=== PATIENT | male | born 1975 | race Caucasian/White ===

== ENCOUNTER 2018-09-09 09:33 | Inpatient (IN) | payer OTHER ==
[2018-09-09 09:53] VITALS: BMI 24.0
--- NOTE | 2018-09-09 10:47 | HP ---
COWS - Scale Resting Pulse: 0= [place] 80 or Below Sweatin= Chills/Flushing Restless Observation: 1= Difficult to Sit Still Pupil Size: 1= Pupils >than Normal Bone or Joint Aches: 2= Severe Diffuse Aches Runny Nose/ Eye Tearin= Runny Nose/Eyes GI Upset > 30mins: 2= Nausea/Diarrhea Tremor Observation: 1= Tremor [place], Not Seen Yawning Observation: 1= 1-2x During Session Anxiety or Irritability: 2=Irritable/Anxious Goose Flesh Skin: 0=Smooth Skin COWS Score: 13 CIWA Score - Admission Criteria OASAS Guidelines: Admission for Medically Managed Detox: Requires at least one of the followin. CIWA greater than 12 2. Seizures within the past 24 hours 3. Delirium tremens within the past 24 hours 4. Hallucinations within the past 24 hours 5. Acute intervention needed for co occurring medical disorder 6. Acute intervention needed for co occurring psychiatric disorder 7. Severe withdrawal that cannot be handled at a lower level of care (continued vomiting, continued diarrhea, abnormal vital signs) requiring intravenous medication and/or fluids 8. Admission ROS S - HPI Chief Complaint: i need help to stop using heroin,cocaine,marijuana and street methadone Allergies/Adverse Reactions: Allergies Allergy/AdvReac Type Severity Reaction Status Date / Time No Known Allergies Allergy Verified 09/09/18 10:39 History of Present Illness: this 43 years old male with heroin,cocaine,marijuana and street methadone, withdrawal symptom,seeking detox,last treatment 2017 did not recall the facility weight loss history of kidneys stones no significant period of sobriety Exam Limitations: No Limitations - Ebola screening Have you traveled outside of the country in the last 21 days: No Have you had contact with anyone from an Ebola affected area: No Have you been sick,other than usual withdrawal symptoms: No Do you have a fever: No - Review of Systems Constitutional: Chills, Loss of Appetite, Malaise, Night Sweats, Changes in sleep, Weakness, Unintentional Wgt. Loss EENT: reports: Tearing, Nose Congestion Respiratory: reports: No Symptoms reported Cardiac: reports: No Symptoms Reported GI: reports: Diarrhea, Nausea, Vomiting, Abdominal cramping : reports: No Symptoms Reported Musculoskeletal: reports: Back Pain, Joint Pain, Muscle Pain, Joint Stiffness Integumentary: reports: Dryness Neuro: reports: Headache, Tremors Endocrine: reports: No Symptoms Reported Hematology: reports: No Symptoms Reported Psychiatric: reports: No Sypmtoms Reported, Judgement Intact, Mood/Affect Appropiate, Orientated x3 Patient History - Patient Medical History Hx Anemia: No Hx Asthma: No Hx Chronic Obstructive Pulmonary Disease (COPD): No Hx Cancer: No Hx Cardiac Disorders: No Hx Congestive Heart Failure: No Hx Pacemaker: No HX Cerebrovascular Accident: No Hx Seizures: No Hx Dementia: No Hx Diabetes: No Hx Gastrointestinal Disorders: No Hx Liver Disease: No Hx Genitourinary Disorders: No Hx Sexually Transmitted Disorders: No Hx Renal Disease (ESRD): No Hx Thyroid Disease: Yes (hyperthyroidism) Hx Human Immunodeficiency Virus (HIV): No (last 2016) Hx Hepatitis C: No Hx Depression: No Hx Suicide Attempt: No Hx Bipolar Disorder: No Hx Schizophrenia: No Other Medical History: no suicidal,no homicidal - Patient Surgical History Past Surgical History: No - PPD History Previous Implant?: Yes Documented Results: Negative w/o proof Implanted On Prior [facility] Admission?: No PPD to be Administered?: Yes - Smoking Cessation Smoking history: Never smoked - Substance & Tx. History Hx Alcohol Use: No Hx Substance Use: Yes Substance Use Type: Cocaine, Heroin, Marijuana Hx Substance Use Treatment: Yes (2017 did not recall facility) - Substances Abused Heroin Route: Inhalation Frequency: Daily Amount used: 12 bags Age of first use: 27 Date of Last Use: 09/09/18 Cocaine Route: Inhalation Frequency: Daily Amount used: 2 bags Age of first use: 19 Date of Last Use: 09/07/18 Marijuana/Hashish Route: Smoking Frequency: 1-2 times per week Amount used: 1 joint Age of first use: 15 Date of Last Use: 09/08/18 street methadone Route: Oral Frequency: 1-2 times per week Amount used: 30mg Age of first use: 31 Date of Last Use: 09/08/18 Family Disease History - Family Disease History Family History: Denies Admission Physical Exam S - Vital Signs Vital Signs: Vital Signs - 24 hr 09/09/18 09:50 Temperature 97.3 F L Pulse Rate 77 Respiratory 18 Rate Blood Pressure 141/79 - Physical General Appearance: Yes: Moderate Distress, Tremorous, Irritable, Sweating, Anxious HEENTM: Yes: Normal ENT Inspection, CHERYL, Pharynx Normal Respiratory: Yes: Lungs Clear, Normal Breath Sounds, No Respiratory Distress Neck: Yes: Within Normal Limits, Supple, Trachea in good position Breast: Yes: Within Normal Limits Cardiology: Yes: Within Normal Limits, Regular Rhythm, Regular Rate, S1, S2 Abdominal: Yes: Within Normal Limits, Normal Bowel Sounds, Non Tender, Flat, Soft Genitourinary: Yes: Within Normal Limits Back: Yes: Muscle Spasm Musculoskeletal: Yes: full range of Motion, Back pain, Muscle Pain Extremities: Yes: Within Normal Limits, Normal Range of Motion, Tremors Neurological: Yes: Within Normal Limits, Alert, Motor Strength 5/5 Integumentary: Yes: Dry Lymphatic: Yes: Within Normal Limits - Diagnostic (1) Opioid dependence with withdrawal Current Visit: Yes Status: Acute (2) Cocaine dependence Current Visit: Yes Status: Acute (3) Cannabis dependence Current Visit: Yes Status: Acute (4) Weight loss Current Visit: Yes Status: Acute (5) Hyperthyroidism Current Visit: Yes Status: Acute Cleared for Admission [facility] - Detox or Rehab [facility] Level of Care: Medically Managed Detox Regimen/Protocol: Methadone [facility] Breath Alcohol Content Breath Alcohol Content: 0 Urine Drug Screen - Results Drug Screen Negative: No Urine Drug Screen Results: THC-Marijuana, SCARLETT-Cocaine, OPI-Opiates, MTD- Methadone, FEN-Fentanyl
[2018-09-09] MEDS ORDERED: LOPERAMIDE HCL 2 MG CAPSULE PO PRN (11:00)
[2018-09-09] MEDS ORDERED: MAGNESIUM CITRATE 300 ML BOTTLE PO PRN (11:00)
[2018-09-09] MEDS ORDERED: MAGNESIUM HYDROX 2400MG/30ML ORAL SUSPENSION 30 ML CUP PO PRN (11:00)
[2018-09-09] MEDS ORDERED: P-EPHED 60MG/TRIPROLIDI 2.5MG TABLET PO PRN (11:00)
[2018-09-09] MEDS ORDERED: MENTHOL/PHENOL 1 EACH UD MM PRN (11:00)
[2018-09-09] MEDS ORDERED: MAG HYDROX/AL HYDROX/SIMETH 30 ML UNIT-DOSE CUP PO PRN (11:00)
[2018-09-09] MEDS ORDERED: guaiFENesin/D-METHORPHAN HB 10 ML UNIT-DOSE CUPS PO PRN (11:00)
[2018-09-09] MEDS ORDERED: METHADONE HCL 10 MG TABLET (FOR DETOX USE ONLY) PO ONE ×2 (11:35→23:00)
[2018-09-09] MEDS ORDERED: METHIMAZOLE 10 MG TABLET (FP) PO SCH ×2 (11:45→17:45)
[2018-09-09] MEDS: CYCLOBENZAPRINE HCL 10 MG TABLET (FP) PO PRN (12:32)
[2018-09-09] MEDS: diazePAM 5 MG TABLET PO PRN (12:32)
--- NOTE | 2018-09-09 15:44 | EKG ---
Test Reason : Blood Pressure : / mmHG Vent. Rate : 060 BPM Atrial Rate : 060 BPM P-R Int : 128 ms QRS Dur : 086 ms QT Int : 414 ms P-R-T Axes : 028 041 049 degrees QTc Int : 414 ms NORMAL SINUS RHYTHM NORMAL ECG NO PREVIOUS ECGS AVAILABLE Confirmed by MARGOT GUIDO, BEAN ([id number]) on 09/09/2018 3:44:10 PM Referred By: Confirmed By:BEAN FROST MD
[2018-09-09] MEDS: THIAMINE HCL 100 MG TABLET (FP) PO SCH (22:32)
[2018-09-09] MEDS: METHIMAZOLE 10 MG TABLET (FP) PO SCH (22:32)
[2018-09-09] MEDS: cloNIDine HCL 0.1 MG TABLET PO SCH (22:33)
[2018-09-10 00:02] LABS: URINE APPEARANCE CLEAR; URINE BILIRUBIN NEGATIVE (<2.0 mg/dL); URINE COLOR YELLOW; URINE GLUCOSE (UA) NEGATIVE (NEGATIVE); URINE KETONE NEGATIVE (NEGATIVE); URINE LEUK ESTERASE NEGATIVE (NEGATIVE); URINE NITRITE NEGATIVE (NEGATIVE); URINE PROTEIN NEGATIVE (NEGATIVE)
[2018-09-10 00:06] LABS: EPI CELLS RARE /HPF (FEW); URINE MUCUS RARE
[2018-09-10] MEDS: METHIMAZOLE 10 MG TABLET (FP) PO SCH ×3 (05:14→22:55)
[2018-09-10] MEDS: ACETAMINOPHEN 325 MG TABLET (FP) PO PRN ×2 (05:15→22:56)
[2018-09-10] MEDS ORDERED: METHADONE HCL 10 MG TABLET (FOR DETOX USE ONLY) PO ONE (10:00)
[2018-09-10] MEDS: CYCLOBENZAPRINE HCL 10 MG TABLET (FP) PO PRN (10:09)
[2018-09-10] MEDS: cloNIDine HCL 0.1 MG TABLET PO SCH ×2 (10:09→22:58)
[2018-09-10] MEDS: diazePAM 5 MG TABLET PO PRN (10:09)
[2018-09-10] MEDS: PRENATAL VITAMINS W/ FOLIC ACID TABLET (FP) PO SCH (10:09)
[2018-09-10] MEDS: IBUPROFEN 400 MG TABLET (FP) PO PRN (10:12)
[2018-09-10 10:19] LABS: HEMATOCRIT 40.5 % (35.4-49); HEMOGLOBIN 13.1 GM/dL (11.7-16.9); MCH 29.2 pg (25.7-33.7); MCHC 32.3 g/dl (32.0-35.9); MEAN CELL VOLUME 90.3 fl (80-96); MEAN PLT VOLUME 10.1 fl (7.5-11.1); PLATELET COUNT 188 K/MM3 (134-434); RBC 4.48 M/mm3 (4.00-5.60); RDW 13.9 % (11.9-15.9); WHITE BLOOD COUNT 5.9 K/mm3 (4.0-10.0)
[2018-09-10 10:59] LABS: ALBUMIN 3.7 g/dl (3.4-5.0); ALK PHOS 112 U/L (45-117); ANION GAP 11 MMOL/L (8-16); BILIRUBIN,TOTAL 0.4 mg/dL (0.2-1); BLOOD UREA NITROGEN 15 mg/dL (7-18); CALCIUM 8.4 mg/dL (8.5-10.1); CHLORIDE 105 mmol/L (98-107); CO2 26 mmol/L (21-32); CREATININE 0.8 mg/dL (0.55-1.3); GLUCOSE,RANDOM 83 mg/dL (74-106); POTASSIUM 4.3 mmol/L (3.5-5.1); SGOT/AST 16 U/L (15-37); SGPT/ALT 24 U/L (13-61); SODIUM 141 mmol/L (136-145); TOT PROT 7.5 g/dl (6.4-8.2)
[2018-09-10] MEDS ORDERED: LIDOCAINE VISCOUS 2% ORAL/TOP 20 ML UNIT-DOSE CUP MM PRN (13:09)
--- NOTE | 2018-09-10 13:10 | PN ---
BHS COWS - Scale Resting Pulse: 0= [place] 80 or Below Sweatin= Chills/Flushing Restless Observation: 1= Difficult to Sit Still Pupil Size: 1= Pupils >than Normal Bone or Joint Aches: 1= Mild Discomfort Runny Nose/ Eye Tearin= Nasal Congestion GI Upset > 30mins: 1= Stomach Cramp Tremor Observation of Outstretched Hands: 1= Tremor [place], Not Seen Yawning Observation: 2= >3x During Session Anxiety or Irritability: 2=Irritable/Anxious Goose Flesh Skin: 0=Smooth Skin COWS Score: 11 BHS Progress Note (SOAP) Subjective: right upper tooth decay no acute bleeding no swell last dental visit "many years ago" body aches joints pain sweat tremor trouble sleep at night Objective: 09/10/18 13:13 Vital Signs Temperature 97.5 F L 09/10/18 09:21 Pulse Rate 72 09/10/18 09:21 Respiratory Rate 16 09/10/18 09:21 Blood Pressure 149/50 L 09/10/18 09:21 O2 Sat by Pulse Oximetry (%) Laboratory Last Values WBC 5.9 K/mm3 (4.0-10.0) 09/10/18 05:40 RBC 4.48 M/mm3 (4.00-5.60) 09/10/18 05:40 Hgb 13.1 GM/dL (11.7-16.9) 09/10/18 05:40 Hct 40.5 % (35.4-49) 09/10/18 05:40 MCV 90.3 fl (80-96) 09/10/18 05:40 MCH 29.2 pg (25.7-33.7) 09/10/18 05:40 MCHC 32.3 g/dl (32.0-35.9) 09/10/18 05:40 RDW 13.9 % (11.9-15.9) 09/10/18 05:40 Plt Count 188 K/MM3 (134-434) 09/10/18 05:40 MPV 10.1 fl (7.5-11.1) 09/10/18 05:40 Sodium 141 mmol/L (136-145) 09/10/18 05:40 Potassium 4.3 mmol/L (3.5-5.1) 09/10/18 05:40 Chloride 105 mmol/L (98-107) 09/10/18 05:40 Carbon Dioxide 26 mmol/L (21-32) 09/10/18 05:40 Anion Gap 11 MMOL/L (8-16) 09/10/18 05:40 BUN 15 mg/dL (7-18) 09/10/18 05:40 Creatinine 0.8 mg/dL (0.55-1.3) 09/10/18 05:40 Creat Clearance w eGFR > 60 (>60) 09/10/18 05:40 Random Glucose 83 mg/dL (74-106) 09/10/18 05:40 Calcium 8.4 mg/dL (8.5-10.1) L 09/10/18 05:40 Total Bilirubin 0.4 mg/dL (0.2-1) 09/10/18 05:40 AST 16 U/L (15-37) 09/10/18 05:40 ALT 24 U/L (13-61) 09/10/18 05:40 Alkaline Phosphatase 112 U/L (45-117) 09/10/18 05:40 Total Protein 7.5 g/dl (6.4-8.2) 09/10/18 05:40 Albumin 3.7 g/dl (3.4-5.0) 09/10/18 05:40 Urine Color Yellow 09/09/18 23:45 Urine Appearance Clear 09/09/18 23:45 Urine pH 6.0 (5.0-8.0) 09/09/18 23:45 Ur Specific [place] 1.025 (1.010-1.035) 09/09/18 23:45 Urine Protein Negative (NEGATIVE) 09/09/18 23:45 Urine Glucose (UA) Negative (NEGATIVE) 09/09/18 23:45 Urine Ketones Negative (NEGATIVE) 09/09/18 23:45 Urine Blood 1+ (NEGATIVE) H 09/09/18 23:45 Urine Nitrite Negative (NEGATIVE) 09/09/18 23:45 Urine Bilirubin Negative (<2.0 mg/dL) 09/09/18 23:45 Urine Urobilinogen 2.0 mg/dL (0.2-1.0) 09/09/18 23:45 Ur Leukocyte Esterase Negative (NEGATIVE) 09/09/18 23:45 Urine WBC (Auto) 4 /hpf (3-5) 09/09/18 23:45 Urine RBC (Auto) 92 /hpf (0-3) 09/09/18 23:45 Ur Epithelial Cells Rare /HPF (FEW) 09/09/18 23:45 Urine Mucus Rare 09/09/18 23:45 RPR Titer Nonreactive (NONREACTIVE) 09/10/18 05:40 HIV 1&2 Antibody Screen Negative 09/09/18 11:35 HIV P24 Antigen Negative 09/09/18 11:35 lab noted Assessment: 09/10/18 13:13 withdrawal sx tooth decay Plan: continue detox lidocaine chlorhexidine
[2018-09-10] MEDS: CHLORHEXIDINE GLUCONATE 0.12% 15ML CUP MM SCH ×2 (14:29→22:54)
[2018-09-10] MEDS: THIAMINE HCL 100 MG TABLET (FP) PO SCH (22:53)
[2018-09-11] MEDS: METHIMAZOLE 10 MG TABLET (FP) PO SCH ×3 (05:21→23:45)
[2018-09-11] MEDS ORDERED: METHADONE HCL 5 MG TABLET (FOR DETOX USE ONLY) PO ONE (10:00)
[2018-09-11] MEDS: CHLORHEXIDINE GLUCONATE 0.12% 15ML CUP MM SCH ×2 (10:09→22:39)
[2018-09-11] MEDS: cloNIDine HCL 0.1 MG TABLET PO SCH ×2 (10:09→22:41)
[2018-09-11] MEDS: PRENATAL VITAMINS W/ FOLIC ACID TABLET (FP) PO SCH (10:09)
[2018-09-11] MEDS: IBUPROFEN 400 MG TABLET (FP) PO PRN (10:12)
--- NOTE | 2018-09-11 10:24 | PN ---
BHS COWS - Scale Resting Pulse: 0= [place] 80 or Below Sweatin=Flushed/Facial Moisture Restless Observation: 0= Sits Still Pupil Size: 0= Normal to Room Light Bone or Joint Aches: 2= Severe Diffuse Aches Runny Nose/ Eye Tearin= Nasal Congestion GI Upset > 30mins: 0= None Tremor Observation of Outstretched Hands: 2= Slight Tremor Visible Yawning Observation: 2= >3x During Session Anxiety or Irritability: 2=Irritable/Anxious Goose Flesh Skin: 0=Smooth Skin COWS Score: 11 S Progress Note (SOAP) Subjective: sweats irritable agitation interrupted sleep Objective: 09/11/18 10:21 Vital Signs Temperature 97.9 F 09/11/18 09:10 Pulse Rate 80 09/11/18 09:10 Respiratory Rate 16 09/11/18 09:10 Blood Pressure 106/56 L 09/11/18 09:10 O2 Sat by Pulse Oximetry (%) Laboratory Tests 09/09/18 09/09/18 09/10/18 11:35 23:45 05:40 WBC 5.9 RBC 4.48 Hgb 13.1 Hct 40.5 MCV 90.3 MCH 29.2 MCHC 32.3 RDW 13.9 Plt Count 188 MPV 10.1 Sodium Potassium Chloride Carbon Dioxide Anion Gap BUN Creatinine Creat Clearance w eGFR Random Glucose Calcium Total Bilirubin AST ALT Alkaline Phosphatase Total Protein Albumin Urine Color Yellow Urine Appearance Clear Urine pH 6.0 Ur Specific [place] 1.025 Urine Protein Negative Urine Glucose (UA) Negative Urine Ketones Negative Urine Blood 1+ H Urine Nitrite Negative Urine Bilirubin Negative Urine Urobilinogen 2.0 Ur Leukocyte Esterase Negative Urine WBC (Auto) 4 Urine RBC (Auto) 92 Ur Epithelial Cells Rare Urine Mucus Rare RPR Titer HIV 1&2 Antibody Screen Negative HIV P24 Antigen Negative 09/10/18 09/10/18 05:40 05:40 WBC RBC Hgb Hct MCV MCH MCHC RDW Plt Count MPV Sodium 141 Potassium 4.3 Chloride 105 Carbon Dioxide 26 Anion Gap 11 BUN 15 Creatinine 0.8 Creat Clearance w eGFR > 60 Random Glucose 83 Calcium 8.4 L Total Bilirubin 0.4 AST 16 ALT 24 Alkaline Phosphatase 112 Total Protein 7.5 Albumin 3.7 Urine Color Urine Appearance Urine pH Ur Specific [place] Urine Protein Urine Glucose (UA) Urine Ketones Urine Blood Urine Nitrite Urine Bilirubin Urine Urobilinogen Ur Leukocyte Esterase Urine WBC (Auto) Urine RBC (Auto) Ur Epithelial Cells Urine Mucus RPR Titer Nonreactive HIV 1&2 Antibody Screen HIV P24 Antigen aaox3 ambulating no acute distress Assessment: 09/11/18 10:22 withdrawal sx Plan: continue detox increase fluids
[2018-09-11] MEDS: MELATONIN 5 MG TABLETS PO PRN (22:39)
[2018-09-11] MEDS: THIAMINE HCL 100 MG TABLET (FP) PO SCH (22:39)
[2018-09-12] MEDS: METHIMAZOLE 5 MG TABLET (FP) PO SCH ×3 (06:37→22:21)
[2018-09-12] MEDS ORDERED: METHADONE HCL 5 MG TABLET (FOR DETOX USE ONLY) PO ONE (10:00)
[2018-09-12] MEDS: cloNIDine HCL 0.1 MG TABLET PO SCH ×2 (10:06→22:21)
[2018-09-12] MEDS: diazePAM 5 MG TABLET PO PRN (10:06)
[2018-09-12] MEDS: PRENATAL VITAMINS W/ FOLIC ACID TABLET (FP) PO SCH (10:06)
[2018-09-12] MEDS: CHLORHEXIDINE GLUCONATE 0.12% 15ML CUP MM SCH ×2 (10:07→22:21)
--- NOTE | 2018-09-12 10:08 | PN ---
BHS Progress Note (SOAP) Subjective: chills sweats toothache Objective: 09/12/18 10:08 Vital Signs Temperature 98.6 F 09/12/18 09:28 Pulse Rate 83 09/12/18 09:28 Respiratory Rate 16 09/12/18 09:28 Blood Pressure 133/77 09/12/18 09:28 O2 Sat by Pulse Oximetry (%) aaox3 ambulating no acute distress Assessment: 09/12/18 10:08 mild withdrawal Plan: continue detox increase fluids continue with peridex
--- NOTE | 2018-09-12 10:56 | PN ---
S Progress Note Note: pt states he needs to be home for his daughters birthday. Pt
[2018-09-12] MEDS: CYCLOBENZAPRINE HCL 10 MG TABLET (FP) PO PRN ×2 (13:48→22:21)
[2018-09-12] MEDS: THIAMINE HCL 100 MG TABLET (FP) PO SCH (22:21)
[2018-09-12] MEDS: MELATONIN 5 MG TABLETS PO PRN (22:21)
[2018-09-13] MEDS: METHIMAZOLE 5 MG TABLET (FP) PO SCH (06:01)
[2018-09-13 09:25] VITALS: BP 103/58; PULSE 74; TEMP 98.1
--- NOTE | 2018-09-13 09:40 | DS ---
[facility] Detox Discharge Summary Admission Date: 09/09/18 Discharge Date: 09/13/18 - History Present History: Opioid Dependence Additional Comments: 43 years old male admitted on 09/09/18 for opiate withdrawal sx feeling better today no gi distress no tremor less sweat no body aches preferred aftercare with Dr. Posey today last visit 08/31/18 received 30 days supply medications - Physical Exam Results Vital Signs: Vital Signs Temperature 98.1 F 09/13/18 09:25 Pulse Rate 74 09/13/18 09:25 Respiratory Rate 16 09/13/18 09:25 Blood Pressure 103/58 L 09/13/18 09:25 O2 Sat by Pulse Oximetry (%) Pertinent Admission Physical Exam Findings: opiate withdrawal sx Vital Signs Temperature 98.1 F 09/13/18 09:25 Pulse Rate 74 09/13/18 09:25 Respiratory Rate 16 09/13/18 09:25 Blood Pressure 103/58 L 09/13/18 09:25 O2 Sat by Pulse Oximetry (%) Laboratory Last Values WBC 5.9 K/mm3 (4.0-10.0) 09/10/18 05:40 RBC 4.48 M/mm3 (4.00-5.60) 09/10/18 05:40 Hgb 13.1 GM/dL (11.7-16.9) 09/10/18 05:40 Hct 40.5 % (35.4-49) 09/10/18 05:40 MCV 90.3 fl (80-96) 09/10/18 05:40 MCH 29.2 pg (25.7-33.7) 09/10/18 05:40 MCHC 32.3 g/dl (32.0-35.9) 09/10/18 05:40 RDW 13.9 % (11.9-15.9) 09/10/18 05:40 Plt Count 188 K/MM3 (134-434) 09/10/18 05:40 MPV 10.1 fl (7.5-11.1) 09/10/18 05:40 Sodium 141 mmol/L (136-145) 09/10/18 05:40 Potassium 4.3 mmol/L (3.5-5.1) 09/10/18 05:40 Chloride 105 mmol/L (98-107) 09/10/18 05:40 Carbon Dioxide 26 mmol/L (21-32) 09/10/18 05:40 Anion Gap 11 MMOL/L (8-16) 09/10/18 05:40 BUN 15 mg/dL (7-18) 09/10/18 05:40 Creatinine 0.8 mg/dL (0.55-1.3) 09/10/18 05:40 Creat Clearance w eGFR > 60 (>60) 09/10/18 05:40 Random Glucose 83 mg/dL (74-106) 09/10/18 05:40 Calcium 8.4 mg/dL (8.5-10.1) L 09/10/18 05:40 Total Bilirubin 0.4 mg/dL (0.2-1) 09/10/18 05:40 AST 16 U/L (15-37) 09/10/18 05:40 ALT 24 U/L (13-61) 09/10/18 05:40 Alkaline Phosphatase 112 U/L (45-117) 09/10/18 05:40 Total Protein 7.5 g/dl (6.4-8.2) 09/10/18 05:40 Albumin 3.7 g/dl (3.4-5.0) 09/10/18 05:40 Urine Color Yellow 09/09/18 23:45 Urine Appearance Clear 09/09/18 23:45 Urine pH 6.0 (5.0-8.0) 09/09/18 23:45 Ur Specific [place] 1.025 (1.010-1.035) 09/09/18 23:45 Urine Protein Negative (NEGATIVE) 09/09/18 23:45 Urine Glucose (UA) Negative (NEGATIVE) 09/09/18 23:45 Urine Ketones Negative (NEGATIVE) 09/09/18 23:45 Urine Blood 1+ (NEGATIVE) H 09/09/18 23:45 Urine Nitrite Negative (NEGATIVE) 09/09/18 23:45 Urine Bilirubin Negative (<2.0 mg/dL) 09/09/18 23:45 Urine Urobilinogen 2.0 mg/dL (0.2-1.0) 09/09/18 23:45 Ur Leukocyte Esterase Negative (NEGATIVE) 09/09/18 23:45 Urine WBC (Auto) 4 /hpf (3-5) 09/09/18 23:45 Urine RBC (Auto) 92 /hpf (0-3) 09/09/18 23:45 Ur Epithelial Cells Rare /HPF (FEW) 09/09/18 23:45 Urine Mucus Rare 09/09/18 23:45 RPR Titer Nonreactive (NONREACTIVE) 09/10/18 05:40 HIV 1&2 Antibody Screen Negative 09/09/18 11:35 HIV P24 Antigen Negative 09/09/18 11:35 lab noted - Treatment Hospital Course: Detox Protocol Followed, Detoxed Safely, Responded well, Discharged Condition Good, Rehab Referral Accepted Patient has Accepted a Rehab Referral to: Dr. Posey for medical mental and addiction issues - Medication Discharge Medications: Ambulatory Orders Methimazole [Tapazole -] 10 mg PO Q8H #90 tablet 09/13/18 - Diagnosis (1) Hyperthyroidism Status: Chronic (2) Weight loss Status: Acute (3) Opioid dependence with withdrawal Status: Acute - AMA Did Patient Leave Against Medical Advice: No
[2018-09-13] MEDS ORDERED: METHADONE HCL 10 MG TABLET (FOR DETOX USE ONLY) PO ONE (10:00)
[2018-09-13] MEDS: PRENATAL VITAMINS W/ FOLIC ACID TABLET (FP) PO SCH (10:02)
[2018-09-13] MEDS: cloNIDine HCL 0.1 MG TABLET PO SCH (10:02)
[2018-09-13] MEDS: CHLORHEXIDINE GLUCONATE 0.12% 15ML CUP MM SCH (10:03)
[2018-09-14] MEDS ORDERED: METHADONE HCL 5 MG TABLET (FOR DETOX USE ONLY) PO ONE (06:00)
== END 2018-09-13 10:08 | disposition home or self-care (01) | DRG 773 ==
LOC: YASAS 09:33 → Y6N 11:27
PROVIDERS: ADMIT Neuromusculoskeletal Medicine & OMM; ATTEND Neuromusculoskeletal Medicine & OMM
PROC: HZ2ZZZZ Detoxification Services for Substance Abuse Treatment (ICD-10-PCS; principal; 2018-09-09)
DX: F11.23 Opioid dependence with withdrawal (principal); F14.20 Cocaine dependence, uncomplicated; F12.20 Cannabis dependence, uncomplicated; E05.90 Thyrotoxicosis, unspecified without thyrotoxic crisis or storm; R63.4 Abnormal weight loss; Z68.24 Body mass index [BMI] 24.0-24.9, adult
CPT/HCPCS: 36415; 80053; 81003; 81015; 85027; 86593; 87389; 93005; 93010; J0735

== ENCOUNTER 2018-10-13 15:34 | Inpatient (IN) | payer OTHER ==
[2018-10-13 15:53] VITALS: BMI 23.5
--- NOTE | 2018-10-13 16:29 | HP ---
COWS - Scale Resting Pulse: 1= [place] 81-100 Sweatin=Flushed/Facial Moisture Restless Observation: 0= Sits Still Pupil Size: 1= Pupils >than Normal Bone or Joint Aches: 4=Acute Joint/Muscle Pain Runny Nose/ Eye Tearin= Runny Nose/Eyes GI Upset > 30mins: 1= Stomach Cramp Tremor Observation: 0= None Yawning Observation: 0= None Anxiety or Irritability: 2=Irritable/Anxious Goose Flesh Skin: 0=Smooth Skin COWS Score: 13 CIWA Score - Admission Criteria OAS Guidelines: Admission for Medically Managed Detox: Requires at least one of the followin. CIWA greater than 12 2. Seizures within the past 24 hours 3. Delirium tremens within the past 24 hours 4. Hallucinations within the past 24 hours 5. Acute intervention needed for co occurring medical disorder 6. Acute intervention needed for co occurring psychiatric disorder 7. Severe withdrawal that cannot be handled at a lower level of care (continued vomiting, continued diarrhea, abnormal vital signs) requiring intravenous medication and/or fluids 8. Admission ROS [facility] Chief Complaint: Heroin withdrawal symptoms Allergies/Adverse Reactions: Allergies Allergy/AdvReac Type Severity Reaction Status Date / Time No Known Allergies Allergy Verified 10/13/18 15:54 History of Present Illness: 43 years old male with 7 years of heroin dependence is seeking admission to detox. Patient was in detox 09/09/2018 - 09/13/2018. He reports in significnt period of sobriety. He has medical history of Hyperthyroidism. He denies suicide attempt and suicidal ideation a this time. - Ebola screening Have you traveled outside of the country in the last 21 days: No (N) Have you had contact with anyone from an Ebola affected area: No Have you been sick,other than usual withdrawal symptoms: No Do you have a fever: No Patient History - Patient Medical History Hx Anemia: No Hx Asthma: No Hx Chronic Obstructive Pulmonary Disease (COPD): No Hx Cancer: No Hx Cardiac Disorders: No Hx Congestive Heart Failure: No Hx Hypertension: No Hx Pacemaker: No HX Cerebrovascular Accident: No Hx Seizures: No Hx Dementia: No Hx Diabetes: No Hx Gastrointestinal Disorders: No Hx Liver Disease: No Hx Genitourinary Disorders: No Hx Sexually Transmitted Disorders: No Hx Renal Disease (ESRD): No Hx Thyroid Disease: Yes (Hyperthyroidism- Methimazole) Hx Human Immunodeficiency Virus (HIV): No (Negative 2017) Hx Hepatitis C: No Hx Depression: No Hx Suicide Attempt: No Hx Bipolar Disorder: No Hx Schizophrenia: No - Patient Surgical History Past Surgical History: Yes Hx Genitourinary Surgery: Yes (Bilateral kidney stone sx in 2013 in [place]) Hx Orthopedic Surgery: Yes (Left knee ORIF 05/2016, right thumb surgery 2015) Other Surgical History: Kidney stone removal in 2013 Anesthesia Reaction: No - PPD History Previous Implant?: Yes Documented Results: Negative w/proof Implanted On Prior [facility] Admission?: Yes Date: 09/11/18 Results: 0 mm PPD to be Administered?: No - Reproductive History Patient is a Female of Child Bearing Age (11 -55 yrs old): No (Male) - Smoking Cessation Smoking history: Never smoked Have you smoked in the past 12 months: No Aproximately how many cigarettes per day: 0 Cigars Per Day: 0 Hx Chewing Tobacco Use: No Initiated information on smoking cessation: No - Substance & Tx. History Hx Alcohol Use: No Hx Substance Use: Yes Substance Use Type: Heroin Hx Substance Use Treatment: Yes ([facility] 09/09/2018 - 09/13/2018) - Substances Abused Heroin Route: Inhalation Frequency: Daily Amount used: 12-15 bags Age of first use: 37 Date of Last Use: 10/13/18 Family Disease History - Family Disease History Family History: Denies Admission Physical Exam [facility] - Vital Signs Vital Signs: Vital Signs - 24 hr 10/13/18 15:46 Temperature 96.1 F L Pulse Rate 97 H Respiratory 18 Rate Blood Pressure 116/80 - Physical General Appearance: Yes: Moderate Distress, Tremorous, Irritable, Sweating, Anxious HEENTM: Yes: EOMI, Normal ENT Inspection, Normal Voice, CHERYL Respiratory: Yes: Lungs Clear, Normal Breath Sounds, No Respiratory Distress Neck: Yes: Supple Breast: Yes: Breast Exam Deferred Cardiology: Yes: Regular Rhythm, Regular Rate Abdominal: Yes: Normal Bowel Sounds, Soft Genitourinary: Yes: Within Normal Limits Back: Yes: Normal Inspection Musculoskeletal: Yes: Back pain Extremities: Yes: Tremors Neurological: Yes: Alert, Normal Mood/Affect Integumentary: Yes: Warm Lymphatic: Yes: Within Normal Limits - Diagnostic (1) Opioid dependence with withdrawal Current Visit: Yes Status: Chronic (2) Cannabis dependence Current Visit: Yes Status: Chronic (3) Cocaine dependence Current Visit: Yes Status: Chronic Qualifiers: Substance use status: uncomplicated Qualified Code(s): F14.20 - Cocaine dependence, uncomplicated (4) Hyperthyroidism Current Visit: Yes Status: Chronic Cleared for Admission [facility] - Detox or Rehab [facility] Level of Care: Medically Managed Detox Regimen/Protocol: Methadone [facility] Breath Alcohol Content Breath Alcohol Content: 0 Urine Drug Screen - Results Drug Screen Negative: No Urine Drug Screen Results: SCARLETT-Cocaine, OPI-Opiates, BZO-Benzodiazepines, MTD- Methadone, OXY-Oxycodone, FEN-Fentanyl
[2018-10-13] MEDS ORDERED: ACETAMINOPHEN 325 MG TABLET (FP) PO PRN (16:41)
[2018-10-13] MEDS ORDERED: IBUPROFEN 400 MG TABLET (FP) PO PRN (16:41)
[2018-10-13] MEDS ORDERED: MAGNESIUM CITRATE 300 ML BOTTLE PO PRN (16:41)
[2018-10-13] MEDS ORDERED: MAG HYDROX/AL HYDROX/SIMETH 30 ML UNIT-DOSE CUP PO PRN (16:41)
[2018-10-13] MEDS ORDERED: METHADONE HCL 10 MG TABLET (FOR DETOX USE ONLY) PO ONE ×2 (16:41→23:00)
[2018-10-13] MEDS ORDERED: MAGNESIUM HYDROX 2400MG/30ML ORAL SUSPENSION 30 ML CUP PO PRN (16:41)
[2018-10-13] MEDS ORDERED: LOPERAMIDE HCL 2 MG CAPSULE PO PRN (16:41)
[2018-10-13] MEDS ORDERED: P-EPHED 60MG/TRIPROLIDI 2.5MG TABLET PO PRN (16:41)
[2018-10-13] MEDS: diazePAM 5 MG TABLET PO PRN ×2 (18:48→22:13)
[2018-10-13] MEDS: THIAMINE HCL 100 MG TABLET (FP) PO SCH (22:13)
[2018-10-13] MEDS: METHIMAZOLE 10 MG TABLET (FP) PO SCH (22:13)
[2018-10-14] MEDS: guaiFENesin/D-METHORPHAN HB 10 ML UNIT-DOSE CUPS PO PRN ×3 (05:30→22:05)
[2018-10-14] MEDS: diazePAM 5 MG TABLET PO PRN ×3 (05:30→22:04)
[2018-10-14] MEDS: MENTHOL/PHENOL 1 EACH UD MM PRN ×3 (05:31→19:24)
[2018-10-14] MEDS: METHIMAZOLE 10 MG TABLET (FP) PO SCH ×3 (05:32→22:03)
[2018-10-14] MEDS ORDERED: METHADONE HCL 10 MG TABLET (FOR DETOX USE ONLY) PO ONE (10:00)
[2018-10-14] MEDS: PRENATAL VITAMINS W/ FOLIC ACID TABLET (FP) PO SCH (10:05)
[2018-10-14 10:16] LABS: HEMATOCRIT 39.8 % (35.4-49); HEMOGLOBIN 12.8 GM/dL (11.7-16.9); MCH 28.9 pg (25.7-33.7); MCHC 32.2 g/dl (32.0-35.9); MEAN CELL VOLUME 89.8 fl (80-96); MEAN PLT VOLUME 9.3 fl (7.5-11.1); PLATELET COUNT 201 K/MM3 (134-434); RBC 4.44 M/mm3 (4.00-5.60); RDW 14.1 % (11.9-15.9); WHITE BLOOD COUNT 7.8 K/mm3 (4.0-10.0)
[2018-10-14 11:02] LABS: ALBUMIN 3.4 g/dl (3.4-5.0); ALK PHOS 104 U/L (45-117); ANION GAP 6 MMOL/L (8-16); BILIRUBIN,TOTAL 0.2 mg/dL (0.2-1); BLOOD UREA NITROGEN 14 mg/dL (7-18); CALCIUM 8.3 mg/dL (8.5-10.1); CHLORIDE 105 mmol/L (98-107); CO2 30 mmol/L (21-32); CREATININE 0.8 mg/dL (0.55-1.3); GLUCOSE,RANDOM 63 mg/dL (74-106); POTASSIUM 4.1 mmol/L (3.5-5.1); SGOT/AST 14 U/L (15-37); SGPT/ALT 16 U/L (13-61); SODIUM 141 mmol/L (136-145); TOT PROT 6.9 g/dl (6.4-8.2)
--- NOTE | 2018-10-14 13:10 | PN ---
BHS COWS - Scale Resting Pulse: 0= [place] 80 or Below Sweatin=Flushed/Facial Moisture Restless Observation: 0= Sits Still Pupil Size: 0= Normal to Room Light Bone or Joint Aches: 0= None Runny Nose/ Eye Tearin= Nasal Congestion GI Upset > 30mins: 1= Stomach Cramp Tremor Observation of Outstretched Hands: 0= None Yawning Observation: 1= 1-2x During Session Anxiety or Irritability: 2=Irritable/Anxious Goose Flesh Skin: 3=Piloerection COWS Score: 10 BHS Progress Note (SOAP) Subjective: Interrupted Sleep, Fatigue, Sweating. Objective: PATIENT A & O X 3. NO ACUTE DISTRESS. 10/14/18 13:11 Vital Signs Temperature 97.3 F L 10/14/18 10:05 Pulse Rate 79 10/14/18 10:05 Respiratory Rate 20 10/14/18 10:05 Blood Pressure 115/63 10/14/18 10:05 O2 Sat by Pulse Oximetry (%) Laboratory Tests 10/14/18 10/14/18 10/14/18 07:10 07:10 07:10 WBC 7.8 RBC 4.44 Hgb 12.8 Hct 39.8 MCV 89.8 MCH 28.9 MCHC 32.2 RDW 14.1 Plt Count 201 MPV 9.3 Sodium 141 Potassium 4.1 Chloride 105 Carbon Dioxide 30 Anion Gap 6 L BUN 14 Creatinine 0.8 Creat Clearance w eGFR > 60 Random Glucose 63 L Calcium 8.3 L Total Bilirubin 0.2 AST 14 L ALT 16 Alkaline Phosphatase 104 Total Protein 6.9 Albumin 3.4 RPR Titer Nonreactive LABS NOTED. UA RESULTS PENDING. 10/14/18 13:12 Assessment: 10/14/18 13:11 WITHDRAWAL SYMPTOMS. Plan: CONTINUE DETOX. PRN FLEXERIL FOR BODY ACHES / MUSCLE SPASMS.
[2018-10-14 18:32] LABS: URINE APPEARANCE CLEAR; URINE BILIRUBIN NEGATIVE (<2.0 mg/dL); URINE COLOR YELLOW; URINE GLUCOSE (UA) NEGATIVE (NEGATIVE); URINE KETONE NEGATIVE (NEGATIVE); URINE LEUK ESTERASE NEGATIVE (NEGATIVE); URINE NITRITE NEGATIVE (NEGATIVE); URINE PROTEIN NEGATIVE (NEGATIVE); URINE UROBILINOGEN NEGATIVE mg/dL (0.2-1.0)
[2018-10-14] MEDS: CYCLOBENZAPRINE HCL 10 MG TABLET (FP) PO PRN (22:03)
[2018-10-14] MEDS: THIAMINE HCL 100 MG TABLET (FP) PO SCH (22:03)
[2018-10-15] MEDS: diazePAM 5 MG TABLET PO PRN ×3 (05:08→22:16)
[2018-10-15] MEDS: guaiFENesin/D-METHORPHAN HB 10 ML UNIT-DOSE CUPS PO PRN (05:08)
[2018-10-15] MEDS: METHIMAZOLE 10 MG TABLET (FP) PO SCH ×3 (05:08→23:02)
[2018-10-15] MEDS: CYCLOBENZAPRINE HCL 10 MG TABLET (FP) PO PRN ×3 (05:10→22:16)
[2018-10-15] MEDS ORDERED: METHADONE HCL 5 MG TABLET (FOR DETOX USE ONLY) PO ONE (10:00)
[2018-10-15] MEDS: PRENATAL VITAMINS W/ FOLIC ACID TABLET (FP) PO SCH (10:15)
--- NOTE | 2018-10-15 11:05 | PN ---
[facility] COWS - Scale Resting Pulse: 1= [place] 81-100 Sweatin=Flushed/Facial Moisture Restless Observation: 1= Difficult to Sit Still Pupil Size: 2= Moderately Dilated Bone or Joint Aches: 2= Severe Diffuse Aches Runny Nose/ Eye Tearin= Runny Nose/Eyes GI Upset > 30mins: 0= None Tremor Observation of Outstretched Hands: 0= None Yawning Observation: 0= None Anxiety or Irritability: 2=Irritable/Anxious Goose Flesh Skin: 0=Smooth Skin COWS Score: 12 S Progress Note (SOAP) Subjective: PATIENT C/O ANXIETY, CHILLS, SWEATING, RUNNY NOSE AND BODY ACHES. Objective: 10/15/18 11:03 Vital Signs Temperature 97.1 F L 10/15/18 08:57 Pulse Rate 83 10/15/18 08:57 Respiratory Rate 18 10/15/18 08:57 Blood Pressure 114/72 10/15/18 08:57 O2 Sat by Pulse Oximetry (%) Laboratory Tests 10/14/18 10/14/18 10/14/18 07:10 07:10 07:10 WBC 7.8 RBC 4.44 Hgb 12.8 Hct 39.8 MCV 89.8 MCH 28.9 MCHC 32.2 RDW 14.1 Plt Count 201 MPV 9.3 Sodium 141 Potassium 4.1 Chloride 105 Carbon Dioxide 30 Anion Gap 6 L BUN 14 Creatinine 0.8 Creat Clearance w eGFR > 60 Random Glucose 63 L Calcium 8.3 L Total Bilirubin 0.2 AST 14 L ALT 16 Alkaline Phosphatase 104 Total Protein 6.9 Albumin 3.4 Urine Color Urine Appearance Urine pH Ur Specific [place] Urine Protein Urine Glucose (UA) Urine Ketones Urine Blood Urine Nitrite Urine Bilirubin Urine Urobilinogen Ur Leukocyte Esterase RPR Titer Nonreactive 10/14/18 15:20 WBC RBC Hgb Hct MCV MCH MCHC RDW Plt Count MPV Sodium Potassium Chloride Carbon Dioxide Anion Gap BUN Creatinine Creat Clearance w eGFR Random Glucose Calcium Total Bilirubin AST ALT Alkaline Phosphatase Total Protein Albumin Urine Color Yellow Urine Appearance Clear Urine pH 8.0 D Ur Specific [place] 1.016 Urine Protein Negative Urine Glucose (UA) Negative Urine Ketones Negative Urine Blood Negative Urine Nitrite Negative Urine Bilirubin Negative Urine Urobilinogen Negative Ur Leukocyte Esterase Negative RPR Titer PE: SKIN: WARM, + FACIAL MOISTURE ALERT AND ORIENTED X 3 EXT FULL ROM, AMB AD COOPER +ANXIOUS, MILD IRRITABILITY Assessment: 10/15/18 11:04 WITHDRAWAL SX Plan: CONTINUE DETOX ENCOURAGE ORAL FLUIDS FLEXERIL FOR BODY ACHES CONTINUE TO MONITOR CLINICALLY
[2018-10-15] MEDS: MENTHOL/PHENOL 1 EACH UD MM PRN (12:09)
[2018-10-15] MEDS: THIAMINE HCL 100 MG TABLET (FP) PO SCH (22:16)
[2018-10-16] MEDS: diazePAM 5 MG TABLET PO PRN ×2 (05:11→10:13)
[2018-10-16] MEDS: METHIMAZOLE 10 MG TABLET (FP) PO SCH ×3 (05:11→22:20)
[2018-10-16] MEDS: CYCLOBENZAPRINE HCL 10 MG TABLET (FP) PO PRN ×2 (05:13→22:21)
[2018-10-16] MEDS ORDERED: METHADONE HCL 5 MG TABLET (FOR DETOX USE ONLY) PO ONE (10:00)
--- NOTE | 2018-10-16 10:12 | PN ---
[facility] Progress Note Note: PATIENT CONTINUES WITH DETOX REGIMEN. C/O INTERRUPTED SLEEP, NIGHT SWEATS AND BODY ACHES. Laboratory Tests 10/14/18 10/14/18 10/14/18 07:10 07:10 07:10 WBC 7.8 RBC 4.44 Hgb 12.8 Hct 39.8 MCV 89.8 MCH 28.9 MCHC 32.2 RDW 14.1 Plt Count 201 MPV 9.3 Sodium 141 Potassium 4.1 Chloride 105 Carbon Dioxide 30 Anion Gap 6 L BUN 14 Creatinine 0.8 Creat Clearance w eGFR > 60 Random Glucose 63 L Calcium 8.3 L Total Bilirubin 0.2 AST 14 L ALT 16 Alkaline Phosphatase 104 Total Protein 6.9 Albumin 3.4 Urine Color Urine Appearance Urine pH Ur Specific [place] Urine Protein Urine Glucose (UA) Urine Ketones Urine Blood Urine Nitrite Urine Bilirubin Urine Urobilinogen Ur Leukocyte Esterase RPR Titer Nonreactive 10/14/18 15:20 WBC RBC Hgb Hct MCV MCH MCHC RDW Plt Count MPV Sodium Potassium Chloride Carbon Dioxide Anion Gap BUN Creatinine Creat Clearance w eGFR Random Glucose Calcium Total Bilirubin AST ALT Alkaline Phosphatase Total Protein Albumin Urine Color Yellow Urine Appearance Clear Urine pH 8.0 D Ur Specific [place] 1.016 Urine Protein Negative Urine Glucose (UA) Negative Urine Ketones Negative Urine Blood Negative Urine Nitrite Negative Urine Bilirubin Negative Urine Urobilinogen Negative Ur Leukocyte Esterase Negative RPR Titer Vital Signs Temperature 97.6 F 10/16/18 09:23 Pulse Rate 84 10/16/18 09:23 Respiratory Rate 20 10/16/18 09:23 Blood Pressure 101/67 10/16/18 09:23 O2 Sat by Pulse Oximetry (%) PE: ALERT AND ORIENTED X 3 SKIN WARM AND DRY EXT FULL ROM, MILD ANKLE EDEMA. AMB AD COOPER RESTING IN BED, SLEEPY. A/P: WITHDRAWAL SX CONTINUE DETOX ENCOURAGE ORAL FLUIDS MONITOR CLINICALLY
[2018-10-16] MEDS: PRENATAL VITAMINS W/ FOLIC ACID TABLET (FP) PO SCH (10:13)
[2018-10-16] MEDS: MELATONIN 5 MG TABLETS PO PRN (22:21)
[2018-10-16] MEDS: THIAMINE HCL 100 MG TABLET (FP) PO SCH (22:21)
[2018-10-16] MEDS: guaiFENesin/D-METHORPHAN HB 10 ML UNIT-DOSE CUPS PO PRN (22:44)
[2018-10-16] MEDS: MENTHOL/PHENOL 1 EACH UD MM PRN (22:46)
[2018-10-17] MEDS: METHIMAZOLE 10 MG TABLET (FP) PO SCH ×3 (05:32→22:08)
[2018-10-17] MEDS: CYCLOBENZAPRINE HCL 10 MG TABLET (FP) PO PRN ×2 (05:33→22:08)
[2018-10-17] MEDS: guaiFENesin/D-METHORPHAN HB 10 ML UNIT-DOSE CUPS PO PRN (09:04)
[2018-10-17] MEDS ORDERED: METHADONE HCL 10 MG TABLET (FOR DETOX USE ONLY) PO ONE (10:00)
[2018-10-17] MEDS: PRENATAL VITAMINS W/ FOLIC ACID TABLET (FP) PO SCH (10:07)
--- NOTE | 2018-10-17 14:56 | PN ---
[facility] Progress Note (SOAP) Subjective: Patient denies any current withdrawal symptoms. Objective: PATIENT A & O X 3, OBSERVED AMBULATING ON UNIT. IN NO ACUTE DISTRESS. 10/17/18 14:54 Vital Signs Temperature 98.4 F 10/17/18 13:54 Pulse Rate 123 H 10/17/18 13:54 Respiratory Rate 18 10/17/18 13:54 Blood Pressure 101/74 10/17/18 13:54 O2 Sat by Pulse Oximetry (%) Laboratory Tests 10/14/18 10/14/18 10/14/18 07:10 07:10 07:10 WBC 7.8 RBC 4.44 Hgb 12.8 Hct 39.8 MCV 89.8 MCH 28.9 MCHC 32.2 RDW 14.1 Plt Count 201 MPV 9.3 Sodium 141 Potassium 4.1 Chloride 105 Carbon Dioxide 30 Anion Gap 6 L BUN 14 Creatinine 0.8 Creat Clearance w eGFR > 60 Random Glucose 63 L Calcium 8.3 L Total Bilirubin 0.2 AST 14 L ALT 16 Alkaline Phosphatase 104 Total Protein 6.9 Albumin 3.4 Urine Color Urine Appearance Urine pH Ur Specific [place] Urine Protein Urine Glucose (UA) Urine Ketones Urine Blood Urine Nitrite Urine Bilirubin Urine Urobilinogen Ur Leukocyte Esterase RPR Titer Nonreactive 10/14/18 15:20 WBC RBC Hgb Hct MCV MCH MCHC RDW Plt Count MPV Sodium Potassium Chloride Carbon Dioxide Anion Gap BUN Creatinine Creat Clearance w eGFR Random Glucose Calcium Total Bilirubin AST ALT Alkaline Phosphatase Total Protein Albumin Urine Color Yellow Urine Appearance Clear Urine pH 8.0 D Ur Specific [place] 1.016 Urine Protein Negative Urine Glucose (UA) Negative Urine Ketones Negative Urine Blood Negative Urine Nitrite Negative Urine Bilirubin Negative Urine Urobilinogen Negative Ur Leukocyte Esterase Negative RPR Titer LABS NOTED. Assessment: 10/17/18 14:55 WITHDRAWAL SYMPTOMS. Plan: CONTINUE DETOX. PATIENT SCHEDULED FOR D/C TOMORROW.
[2018-10-17] MEDS: MELATONIN 5 MG TABLETS PO PRN (22:08)
[2018-10-17] MEDS: THIAMINE HCL 100 MG TABLET (FP) PO SCH (22:08)
[2018-10-18] MEDS: METHIMAZOLE 10 MG TABLET (FP) PO SCH (05:09)
[2018-10-18] MEDS ORDERED: METHADONE HCL 5 MG TABLET (FOR DETOX USE ONLY) PO ONE (06:00)
[2018-10-18 09:47] VITALS: BP 108/69; PULSE 97; TEMP 96.9
[2018-10-18] MEDS: PRENATAL VITAMINS W/ FOLIC ACID TABLET (FP) PO SCH (10:12)
--- NOTE | 2018-10-18 12:18 | DS ---
[facility] Detox Discharge Summary Admission Date: 10/13/18 Discharge Date: 10/18/18 - History Present History: Cannabis Dependence, Cocaine Dependence, Opioid Dependence Additional Comments: Patient completed detox successfully. Patient accepted referral for admission to [facility] rehab today. Patient is A, A, Ox3, in nad, vss; ambulatory. Pertinent Past History: Opioid dependence Cocaine dependence Cannabis dependence Hyperthyroidism - Physical Exam Results Vital Signs: Vital Signs Temperature 96.9 F L 10/18/18 09:47 Pulse Rate 97 H 10/18/18 09:47 Respiratory Rate 20 10/18/18 09:47 Blood Pressure 108/69 10/18/18 09:47 O2 Sat by Pulse Oximetry (%) Pertinent Admission Physical Exam Findings: Withdrawal symptoms Laboratory Tests 10/14/18 10/14/18 10/14/18 07:10 07:10 07:10 WBC 7.8 RBC 4.44 Hgb 12.8 Hct 39.8 MCV 89.8 MCH 28.9 MCHC 32.2 RDW 14.1 Plt Count 201 MPV 9.3 Sodium 141 Potassium 4.1 Chloride 105 Carbon Dioxide 30 Anion Gap 6 L BUN 14 Creatinine 0.8 Creat Clearance w eGFR > 60 Random Glucose 63 L Calcium 8.3 L Total Bilirubin 0.2 AST 14 L ALT 16 Alkaline Phosphatase 104 Total Protein 6.9 Albumin 3.4 Urine Color Urine Appearance Urine pH Ur Specific [place] Urine Protein Urine Glucose (UA) Urine Ketones Urine Blood Urine Nitrite Urine Bilirubin Urine Urobilinogen Ur Leukocyte Esterase RPR Titer Nonreactive 10/14/18 15:20 WBC RBC Hgb Hct MCV MCH MCHC RDW Plt Count MPV Sodium Potassium Chloride Carbon Dioxide Anion Gap BUN Creatinine Creat Clearance w eGFR Random Glucose Calcium Total Bilirubin AST ALT Alkaline Phosphatase Total Protein Albumin Urine Color Yellow Urine Appearance Clear Urine pH 8.0 D Ur Specific [place] 1.016 Urine Protein Negative Urine Glucose (UA) Negative Urine Ketones Negative Urine Blood Negative Urine Nitrite Negative Urine Bilirubin Negative Urine Urobilinogen Negative Ur Leukocyte Esterase Negative RPR Titer Labs reviewed - Treatment Hospital Course: Detox Protocol Followed, Detoxed Safely, Responded well, Discharged Condition Good, Rehab Referral Accepted - Medication Discharge Medications: Ambulatory Orders Methimazole [Tapazole -] 10 mg PO Q8H #90 tablet 09/13/18 - Diagnosis (1) Opioid dependence with withdrawal Status: Acute (2) Cannabis dependence Status: Chronic (3) Cocaine dependence Status: Chronic Qualifiers: Substance use status: uncomplicated Qualified Code(s): F14.20 - Cocaine dependence, uncomplicated (4) Hyperthyroidism Status: Chronic - AMA Did Patient Leave Against Medical Advice: No (Patient accepted to [facility])
== END 2018-10-18 11:26 | disposition other institution (70) | DRG 773 ==
LOC: YASAS 15:34 → Y3N 16:58
PROC: HZ2ZZZZ Detoxification Services for Substance Abuse Treatment (ICD-10-PCS; principal; 2018-10-13)
DX: F11.23 Opioid dependence with withdrawal (principal); F14.20 Cocaine dependence, uncomplicated; F12.20 Cannabis dependence, uncomplicated; E05.90 Thyrotoxicosis, unspecified without thyrotoxic crisis or storm
CPT/HCPCS: 36415; 80053; 81003; 85027; 86593

== ENCOUNTER 2018-10-18 11:32 | Inpatient (IN) | payer OTHER ==
[2018-10-18 11:59] VITALS: BMI 25.1
[2018-10-18] MEDS ORDERED: MAGNESIUM CITRATE 300 ML BOTTLE PO PRN (12:19)
[2018-10-18] MEDS ORDERED: LOPERAMIDE HCL 2 MG CAPSULE PO PRN (12:19)
[2018-10-18] MEDS ORDERED: MENTHOL/PHENOL 1 EACH UD MM PRN (12:19)
[2018-10-18] MEDS ORDERED: IBUPROFEN 400 MG TABLET (FP) PO PRN (12:19)
[2018-10-18] MEDS ORDERED: MAGNESIUM HYDROX 2400MG/30ML ORAL SUSPENSION 30 ML CUP PO PRN (12:19)
[2018-10-18] MEDS ORDERED: guaiFENesin/D-METHORPHAN HB 10 ML UNIT-DOSE CUPS PO PRN (12:19)
[2018-10-18] MEDS ORDERED: P-EPHED 60MG/TRIPROLIDI 2.5MG TABLET PO PRN (12:19)
[2018-10-18] MEDS ORDERED: MAG HYDROX/AL HYDROX/SIMETH 30 ML UNIT-DOSE CUP PO PRN (12:19)
[2018-10-18] MEDS ORDERED: ACETAMINOPHEN 325 MG TABLET (FP) PO PRN (12:19)
[2018-10-18] MEDS ORDERED: hydrOXYzine PAMOATE 50 MG CAPSULE (FP) PO PRN (12:19)
--- NOTE | 2018-10-18 12:24 | HP ---
[facility] Rehab Assess/Revision - Admission History Admitted to Rehab from: [facility] [address] [place] Date of Admission to Rehab: - Vital signs Vital Signs: Vital Signs Period Temp Pulse Resp BP Sys/Armstrong Pulse Ox Last 24 Hr 98.3 F 98 18 105/71 - Findings Detox History & Physical reviewed: Yes Concur with findings: Yes Inpatient Rehab Admission - Initial Determination Are CD services needed?: Yes Free of communicable disease: Yes Not in need of hospitalization: Yes - Rehab Admission Criteria Previous failed treatment: Yes Poor recovery environment: Yes Comorbidities: Yes Lacks judgement: No Patient is meeting Inpatient Rehab admission criteria:: Yes
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
[2018-10-18] MEDS: METHIMAZOLE 10 MG TABLET (FP) PO SCH ×2 (14:26→21:31)
[2018-10-18] MEDS ORDERED: PT OWN MED DRAWER 7, Y5N ONE (20:02)
[2018-10-18] MEDS ORDERED: THIAMINE HCL 100 MG TABLET (FP) PO SCH (22:00)
[2018-10-18] MEDS ORDERED: MELATONIN 5 MG TABLETS PO PRN (22:00)
[2018-10-19] MEDS: METHIMAZOLE 10 MG TABLET (FP) PO SCH (06:02)
[2018-10-19 06:19] VITALS: BP 112/76; PULSE 82; TEMP 97.9
[2018-10-19] MEDS ORDERED: PRENATAL VITAMINS W/ FOLIC ACID TABLET (FP) PO SCH (10:00)
== END 2018-10-19 08:50 | disposition left against medical advice (07) | DRG 770 ==
LOC: YASAS 11:32 → Y3W 11:33
PROVIDERS: ADMIT Psychiatry & Neurology Psychiatry; ATTEND Psychiatry & Neurology Psychiatry
PROC: HZ42ZZZ Group Counseling for Substance Abuse Treatment, Cognitive-Behavioral (ICD-10-PCS; principal; 2018-10-18)
DX: F11.20 Opioid dependence, uncomplicated (principal); F14.20 Cocaine dependence, uncomplicated; F12.20 Cannabis dependence, uncomplicated; F19.282 Other psychoactive substance dependence with psychoactive substance-induced sleep disorder; E05.90 Thyrotoxicosis, unspecified without thyrotoxic crisis or storm